=== PATIENT | male | born 1960 | race Caucasian/White ===

== ENCOUNTER 2025-05-13 07:30 | Day surgery (SDC) | payer MEDICARE, SELFPAY ==
--- NOTE | 2025-05-13 | PATH_ITS ---
[facility] Accession Number: [id number] No. of containers..02 Tissue . 01 Material submitted: . PART A: colon - POLYP CECUM PART B: colon - COLON,DESCENDING POLYP (MULTIPLE) . 01 Diagnosis: A. CECAL POLYP: Tubular adenoma. . B. DESCENDING COLON POLYP (MULTIPLE): Hyperplastic polyp. Additional colonic mucosa with benign lymphoid aggregate. DEBORA 05/20/2025 0956 Local . 01 Electronically signed: . Caitlyn Higuera MD, Pathologist NPI- [id number] . 01 Gross description: . Received are two formalin-filled containers both labeled with the patient's name. . A. In a container labeled polyp, is one fragment of perez, soft tissue which measures 0.3 x 0.3 x 0.2 cm. The specimen is totally submitted in cassette A1. B. In a container labeled descending colon polyp multiple, are multiple fragments of perez, soft tissue which range in size from less than 0.1 cm to 0.4 x 0.3 x 0.2 cm. All fragments are totally submitted in cassette B1. ([id number]) /DEBORA 05/16/202528 Local . 01 Pathologist provided ICD-10: D12.0, D12.4, K63.89 . 01 CPT . 146170, [id number] Specimen Comment: A courtesy copy of this report has been sent to [facility] Pathology Performed at: [address] [id number] MD Marcus Adams MD Phone: [phone]
--- NOTE | 2025-05-13 07:49 | PM.PREOP ---
Pre-operative Note Interval Note History & Physical reviewed/Exam performed by Physician: Yes Changes to H&P: No ASA Class (for procedural sedation): II
[2025-05-13 08:20] VITALS: BP 158/98; PULSE 101; RESP 16; TEMP 36.4; O2SAT 98
[2025-05-13] MEDS: LACTATED RINGERS 1,000 ML 42 ML IV (08:36)
--- NOTE | 2025-05-13 09:04 | PM.OP.COLON ---
Operative Date/Time/Diagnoses Date of procedure: 05/13/25 Time of procedure: 10:03 Pre-op diagnosis: Screening colonoscopy Post-op diagnosis: other (polyps) Procedure & Clinicians Study performed: Colonoscopy Same procedure(s) as scheduled: Yes Indications: 65yo M, screening colonoscopy, +cologuard, +FH father had colon cancer. Surgeon: Ronny Aponte Anesthesia Type: MAC +/- Procedure Notes SCOAP/Timeout: Performed Procedure in detail: Colonoscopy Patient placed in left lateral recumbent position. Time out was performed. Procedural sedation was administered by anesthesia. Examination began with a thorough inspection of the perianal area. There was no evidence of fissures, fistulae, external hemorrhoids or cutaneous malignancy. The colonoscope was then placed into the rectum and the lumen was insufflated with carbon dioxide. The scope was carefully advanced forward. Ultimately the cecum was intubated and confirmed by identification of the ileocecal valve, the appendiceal orifice and the confluence of the taenia. The scope was then slowly withdrawn examining the colon thoroughly in all directions. In the rectum, retroflexion of the scope was performed for inspection of the distal rectum and anal canal. ?Significant colonoscopy findings: ?1. Quality of the preparation-good, [place] 2-3, improved with irrigation/suction ?2. Many (>50) 3-5mm sessile, benign appearing polyps throughout rectosigmoid, several in cecum, multiple polyps removed x 4 in cecum and rectosigmoid to sample, retrieved for pathology, may need short interval colonoscopy due to number of polyps and +FH in his father, await pathology Scope withdrawal time: 10 Findings: polyp(s) Specimen(s): other (polyps) Impression: Multiple polyps, mostly in rectosigmoid, pathology pending May need short interval colonoscopy depending upon pathology results Post-procedure Recommendations: Colonoscopy in 3 years Plan for aftercare: PACU then home Follow up: as needed Disposition: PACU
[2025-05-13] MEDS: ACETAMINOPHEN IV 1,000 MG/100 ML VIAL 400 MG IV (09:15)
[2025-05-13 10:03] VITALS: BP 141/78; PULSE 83; RESP 16; TEMP 36.4; O2SAT 96
[2025-05-13 10:08] VITALS: BP 138/67; PULSE 90; RESP 23; O2SAT 96
[2025-05-13 10:13] VITALS: BP 135/72; PULSE 89; RESP 8; TEMP 36.1; O2SAT 97
[2025-05-13 10:17] VITALS: BP 148/74; PULSE 87; RESP 7; TEMP 36.1; O2SAT 98
== END 2025-05-13 10:38 | disposition home or self-care (01) ==
PROVIDERS: PCP Internal Medicine; Referring Provider Surgery; Visit Provider Surgery
PROC: 0DJD8ZZ Inspection of Lower Intestinal Tract, Via Natural or Artificial Opening Endoscopic (ICD-10-PCS; CPT 45378; principal; 2025-05-13 09:00)
DX: Z12.11 Encounter for screening for malignant neoplasm of colon (principal); R19.5 Other fecal abnormalities; Z80.0 Family history of malignant neoplasm of digestive organs; D12.0 Benign neoplasm of cecum; K63.5 Polyp of colon
CPT/HCPCS: 45380; J0131; J1885; J2405; J2704